=== PATIENT | female | born 1975 | race Caucasian/White ===

== ENCOUNTER 2017-01-21 10:22 | Day surgery (SDC) | payer BC ==
--- NOTE | 2017-01-21 08:52 | HP ---
DATE OF SURGERY: 01/21/2017 HISTORY OF PRESENT ILLNESS: The patient is a 41 year-old with heartburn, palpitations going on for ten to fifteen years worse recently. She did not have any gallstones then. No nausea or vomiting. No change in bowel movements. No jaundice. Recent ultrasound showed cholelithiasis which is new compared to prior study back in 2009 apparently. PAST MEDICAL HISTORY: She had some heart palpitations, heartburn as well as cholelithiasis. PAST SURGICAL HISTORY: Two sections. [place] teeth removed in the past. MEDICATIONS: Omeprazole. ALLERGIES: CODEINE. FAMILY HISTORY: Gallbladder disease and diabetes. SOCIAL HISTORY: Denies smoking, denies alcohol abuse. REVIEW OF SYSTEMS: Twelve systems reviewed. No chest pain or palpitations other systems negative or noncontributory as above and per preadmission questionnaire. PHYSICAL EXAMINATION: GENERAL: No acute distress. HEENT: Sclerae nonicteric. NECK: No JVD. CHEST: Equal excursion, nonlabored breathing. CVS: Regular rate and rhythm. ABDOMEN: Soft. No peritoneal signs. Mild tenderness epigastrium but mainly the patient complains of heartburn. EXTREMITIES: No significant edema. NEURO: Alert, moving extremities symmetrically. No gross motor deficits noted. IMPRESSION: Increasing upper abdominal discomfort, heartburn, cholelithiasis probable chronic cholecystitis. I feel she will benefit from cholecystectomy. Risks and benefits explained in detail including but not limited to bleeding or infection, risk of trocar injury or hernia, small risk of bowel, bladder or blood vessel injury, small risk of bile leak, bile duct injury, retained stone or sludge possibly requiring further procedure either open or ERCP, general risk of anesthesia, deep venous thrombosis, pulmonary embolism, pneumonia, perioperative risk of aches, pains, bloating, constipation and/or loose stools possibly even chronic in nature. She understands and agrees to the planned procedure, will proceed with laparoscopic cholecystectomy with possible open as an outpatient.
[~2017-01-21 10:22] MED LIST: Lactated Ringers 1,000 ML IV ONE; Sensorcaine 0.25% 10 ML ONE
[2017-01-21] MEDS ORDERED: Versed 2 MG/2 ML Injection IV ONE (10:23)
[2017-01-21] MEDS ORDERED: BRIDION 200MG/2ML IV ONE (10:23)
[2017-01-21] MEDS ORDERED: Decadron 4 MG INJ IV ONE (10:23)
[2017-01-21] MEDS ORDERED: Quelicin Fliptop 200 MG/10 ML IV ONE (10:23)
[2017-01-21] MEDS ORDERED: DIPRIVAN 200 MG/20 ML IV ONE (10:23)
[2017-01-21] MEDS ORDERED: TORAdol 30 mg Injection IV ONE (10:23)
[2017-01-21] MEDS ORDERED: Zemuron 100 MG/10 ML IV ONE (10:23)
[2017-01-21] MEDS ORDERED: Zofran 4 MG/2 ML VIAL IV ONE (10:23)
[2017-01-21] MEDS ORDERED: SUBLIMAZE 250 MCG/5 ML IV ONE (10:23)
[2017-01-21] MEDS ORDERED: Lactated Ringers 1,000 ML IV SCH (11:30)
[2017-01-21] MEDS ORDERED: MEFOXIN 2 GM PREMIX** 2 GM/50 ML ML IV SCH (12:00)
[2017-01-21] MEDS ORDERED: SUBLIMAZE 100 MCG/2 ML ONE (15:08)
[2017-01-21 17:09] VITALS: BP 121/74; PULSE 79; O2SAT 99
--- NOTE | 2017-01-22 09:19 | OP ---
SURGERY DATE/TIME: 01/21/2017 1404 PREOPERATIVE DIAGNOSIS: Symptomatic cholelithiasis, chronic cholecystitis. POSTOPERATIVE DIAGNOSIS: Symptomatic cholelithiasis, chronic cholecystitis. PROCEDURE: Laparoscopic cholecystectomy. SURGEON: Dr. Beny Kelly. ANESTHESIA: General. ESTIMATED BLOOD LOSS: Minimal. INDICATIONS: As noted above. Risks and benefits explained in detail but not limited to and consent was obtained. DESCRIPTION OF PROCEDURE AND FINDINGS: The patient was taken to the OR. General anesthesia was induced. Abdomen prepped and draped in the usual sterile fashion. After official time out and no disagreement with planned procedure, a transverse incision made at the supraumbilical area. Fascia grasped and pulled upward. Veress needle inserted and tested with saline. Pneumoperitoneum accomplished insufflating opening pressure of 0-15. An 11 mm bladeless port and camera were inserted without difficulty in the supraumbilical area. There was no evidence of any intra-abdominal injury secondary to trocar insertion. Two - 5 mm right upper quadrant ports and 5 mm epigastric port placed. Gallbladder grasped and retracted over the edge of the liver and laterally away from Calot's triangle. Dissection carried posterior, lateral to anterior fashion. The cystic duct and infundibular junction slowly and carefully well skeletonized until a critical view was obtained both anteriorly and posteriorly. Once this was accomplished cystic duct was then clipped x3 and divided in the usual fashion as well as cystic artery clipped x3 and divided in usual fashion. Gallbladder slowly and carefully dissected free from its dense inflammatory attachments to the liver bed staying directly on the gallbladder wall clipping additional oozing side branch off the cystic artery directly on the gallbladder wall as necessary. Just prior to releasing from final attachments to the anterior edge of the liver the liver bed re-inspected. Clips noted to be in place in cystic duct and cystic artery stumps. There were no signs of any active bleeding or bile leakage. It was felt there was no benefit in drain placement. The gallbladder was released from final attachments to the anterior edge of the liver, pulled up the supraumbilical port site, decompressed of bile. Moderate sized stones were carefully grasped with [place], crushed and then pulled up and carefully retrieved allowing the gallbladder and stones to be pulled up and out without any spillage in the abdomen. At this point fascial defect at 10/11 closed with puncture closure device with #1 Vicryl under direct vision of the camera. At this point liver bed re-inspected. Clips noted to be in place in cystic duct and cystic artery stumps. There were no signs of any active bleeding or bile leakage. It was felt there was no benefit from drain placement. Pneumoperitoneum decompressed. The wound was irrigated out. Skin incision closed with 4-0 Vicryl. Steri-Strips and sterile dressing applied. 0.25% Marcaine local injected along the skin incision fascial defect. The patient tolerated the procedure well. There were no immediate complications. Findings discussed with the family out in the waiting area.
== END 2017-01-21 16:50 | disposition home or self-care (01) ==
LOC: SDC 10:22
PROVIDERS: ATTEND Surgery
PROC: 0FT44ZZ Resection of Gallbladder, Percutaneous Endoscopic Approach (ICD-10-PCS; principal; 2017-01-21)
DX: K80.10 Calculus of gallbladder with chronic cholecystitis without obstruction (principal)
CPT/HCPCS: 00790; J0330; J0694; J1100; J1885; J2250; J2405; J2704; J3010

== ENCOUNTER 2019-05-03 06:10 | Emergency (ER) | payer BC ==
--- NOTE | 2019-05-03 06:14 | ERPHSYRPT ---
- History of Present Illness Source: patient Exam Limitations: no limitations Timing/Duration: today Severity: moderate Character of Deficits: none Deficits: off balance (When ambulating. Symptoms improved when sitting down or laying down) Baseline/Normal Cognition: alert oriented x 3 Current Cognition: alert oriented x 3 Baseline Gait: walks w/o assistance Associated Symptoms: denies symptoms <MARYELLEN CABA - Last Filed: 05/03/19 07:00> <EVELYNE MONGE - Last Filed: 05/03/19 08:17> - History of Present Illness Time Seen by Provider: 05/03/19 06:13 Physician History: This is a 43-year-old female who presents with dizziness and some associated nausea that began approximately midnight prior to this evaluation. Patient was at work and began to have these type of symptoms. Patient has never had this type of issue before. She does not have a sore throat or cough. She does not have any abdominal pain. She has no vomiting and no diarrhea. Patient does state that she has had cold symptoms a few days ago though seem to have improved but she does feel as though she has head and sinus congestion and pressure. Eyes earaches. Not on any new medication. Patient has no urinary symptoms. Does have a history of anxiety and arrhythmias in the past. pt is currently on her menstrual period (MARYELLEN CABA) Allergies/Adverse Reactions: codeine Adverse Reaction (Intermediate, Verified 05/03/19 06:50) Vomiting Home Medications: Eszopiclone 2 mg PO DAILY 05/03/19 [History] - Review of Systems Constitutional: No Symptoms Eyes: No Symptoms Ears, Nose, & Throat: Nose Congestion, Other (Sinus pressure) Respiratory: No Symptoms Cardiac: No Symptoms Abdominal/Gastrointestinal: No Symptoms Genitourinary Symptoms: No Symptoms Musculoskeletal: No Symptoms Skin: No Symptoms Neurological: Dizziness Psychological: No Symptoms Endocrine: No Symptoms Hematologic/Lymphatic: No Symptoms Immunological/Allergic: No Symptoms All Other Systems: Reviewed and Negative <MARYELLEN CABA - Last Filed: 05/03/19 07:00> - Past Medical History Pertinent Past Medical History: Yes Neurological History: No Pertinent History ENT History: No Pertinent History Cardiac History: Arrhythmia Respiratory History: No Pertinent History Endocrine Medical History: No Pertinent History Musculoskeletal History: No Pertinent History GI Medical History: GERD History: No Pertinent History Psycho-Social History: Anxiety Female Reproductive Disorders: No Pertinent History Other Medical History: gest. DM - Past Surgical History Past Surgical History: Yes Neuro Surgical History: No Pertinent History Cardiac: No Pertinent History Respiratory: No Pertinent History Gastrointestinal: No Pertinent History Genitourinary: No Pertinent History Musculoskeletal: No Pertinent History Female Surgical History: Section, Tubal Ligation Other Surgical History: wisdom teeth. - Social History Smoking Status: Former smoker Exposure to second hand smoke: No Drug Use: none <MARYELLEN CABA - Last Filed: 05/03/19 07:00> - [place] Coma Scale Best Eye Response ([place]): (4) open spontaneously Best Verbal Response ([place]): (5) oriented Best Motor Response ([place]): (6) obeys commands [place] Total: 15 - Physical Exam General Appearance: no apparent distress, alert, anxiety Eye Exam: bilateral eye: normal inspection, PERRL, EOMI Ears, Nose, Throat Exam: normal ENT inspection, moist mucous membranes Neck Exam: normal inspection, non-tender, supple, full range of motion Respiratory: normal breath sounds, lungs clear, airway intact, No chest tenderness, No respiratory distress Cardiovascular: regular rate/rhythm, normal heart sounds, normal peripheral pulses Gastrointestinal: No tenderness Pelvic Exam: not done Rectal Exam: not done Back Exam: normal inspection, normal range of motion, No CVA tenderness, No vertebral tenderness Extremity Exam: normal inspection, normal range of motion, pelvis stable Mental Status: alert, oriented x 3, cooperative motion picture director Exam: normal hearing, normal speech, PERRL, tongue midline Coordination/Gait: normal finger to nose, normal gait Skin Exam: normal color, warm, dry SpO2 Interpretation: normal O2 Delivery: Room Air <MARYELLEN CABA ErmiasZuly - Last Filed: 05/03/19 07:00> - Nursing Vital Signs Nursing Vital Signs: Initial Vital Signs Temperature 97.7 F 05/03/19 06:21 Pulse Rate 69 05/03/19 06:21 Respiratory Rate 16 05/03/19 06:21 Blood Pressure 119/80 05/03/19 06:21 O2 Sat by Pulse Oximetry 100 05/03/19 06:21 Pain Scale Pain Intensity 0 - Course Nursing assessment & vital signs reviewed: Yes EKG Interpreted by Me: RATE (67), Sinus Rhythm, NORMAL AXIS, NORMAL INTERVALS, NORMAL QRS, Non-specific ST Changes - CT Exams Head CT Interpretation: Negative <EVELYNE MONGE - Last Filed: 05/03/19 08:17> Ordered Tests: Active Orders 24 hr Category Date Time Status EKG-ER Only STAT Care 05/03/19 06:41 Active IV Insertion STAT Care 05/03/19 06:41 Active NPO (ED) STAT Care 05/03/19 06:42 Active Pulse Oximetry (ED) STAT Care 05/03/19 06:41 Active HEAD WITHOUT CONTRAST [CT] Stat Exams 05/03/19 06:42 Taken CBC W DIFF Stat Lab 05/03/19 06:49 Completed CMP Stat Lab 05/03/19 06:49 Completed CULTURE,URINE Stat Lab 05/03/19 06:50 Received UA W/RFX UR CULTURE Stat Lab 05/03/19 06:50 Completed Lab/Rad Data: Laboratory Result Diagrams 05/03/19 06:49 05/03/19 06:49 Laboratory Results 05/03/19 05/03/19 05/03/19 Range/Units 06:50 06:49 06:49 WBC 2.6 L (4.0-10.5) K/mm3 RBC 4.28 (4.1-5.4) M/mm3 Hgb 13.0 (12.0-16.0) gm/dl Hct 37.1 (35-47) % MCV 86.7 (78-100) fl MCH 30.4 (26-32) pg MCHC 35.0 (32-36) g/dl RDW 12.4 (11.5-14.0) % Plt Count 197 (150-450) K/mm3 MPV 9.1 (7.5-11.0) fl Gran % 54.0 (36.0-66.0) % Eos # (Auto) 0.01 (0-0.5) Absolute Lymphs (auto) 0.84 L (1.0-4.6) Absolute Monos (auto) 0.35 (0.0-1.3) Lymphocytes % 32.2 (24.0-44.0) % Monocytes % 13.4 H (0.0-12.0) % Eosinophils % 0.4 (0.00-5.0) % Basophils % 0.0 (0.0-0.4) % Absolute Granulocytes 1.41 (1.4-6.9) Basophils # 0 (0-0.4) Sodium 135 L (137-145) mmol/L Potassium 3.7 (3.5-5.1) mmol/L Chloride 102 (98-107) mmol/L Carbon Dioxide 25 (22-30) mmol/L Anion Gap 12.1 (5-15) MEQ/L BUN 13 (7-17) mg/dL Creatinine 0.68 (0.52-1.04) mg/dL Estimated GFR > 60.0 ML/MIN Glucose 156 H (74-106) mg/dL Calcium 8.9 (8.4-10.2) mg/dL Total Bilirubin 0.30 (0.2-1.3) mg/dL AST 28 (14-36) U/L ALT 20 (0-35) U/L Alkaline Phosphatase 66 (38-126) U/L Serum Total Protein 7.9 (6.3-8.2) g/dL Albumin 4.4 (3.5-5.0) g/dL Urine Color YELLOW (YELLOW) Urine Appearance CLEAR (CLEAR) Urine pH 6.0 (5-6) Ur Specific [place] 1.029 (1.005-1.025) Urine Protein 30 (Negative) Urine Ketones NEGATIVE (NEGATIVE) Urine Blood LARGE (0-5) Keith/ul Urine Nitrite NEGATIVE (NEGATIVE) Urine Bilirubin NEGATIVE (NEGATIVE) Urine Urobilinogen NEGATIVE (0-1) mg/dL Ur Leukocyte Esterase NEGATIVE (NEGATIVE) Urine WBC (Auto) 0-2 (0-5) /HPF Urine RBC (Auto) 16-25 (0-2) /HPF U Epithel Cells (Auto) NONE (FEW) /HPF Urine Bacteria (Auto) RARE (NEGATIVE) /HPF Urine Mucus (Auto) SLIGHT (NEGATIVE) /HPF Urine Culture Reflexed YES (NO) Urine Glucose NEGATIVE (NEGATIVE) mg/dL <MARYELLEN CABA - Last Filed: 05/03/19 07:00> - Progress Progress: improved <EVELYNE MONGE - Last Filed: 05/03/19 08:17> - Progress Progress Note: 05/03/19 07:00 I have transferred the patient to Dr. Monge. I have reviewed the patient's history and condition as well as work-up pending. He will follow-up with results and make the final disposition. (MARYELLEN CABA) <MARYELLEN CABA - Last Filed: 05/03/19 07:00> - Departure Departure Disposition: Home Critical Care Time: No <EVELYNE MONGE - Last Filed: 05/03/19 08:17> - Departure Clinical Impression: Labyrinthitis Condition: Stable Referrals: DOCTOR,NO FAMILY [Primary Care Provider] - Instructions: Vertigo (a Type of Dizziness) (DC) Prescriptions: Meclizine HCl 25 mg [Antivert 25 mg] 25 mg PO Q8H PRN #10 tablet PRN Reason: Dizziness
[2019-05-03 06:54] LABS: Absolute Neutrophil Ct (ANC) 1.41 (1.4-6.9); Basophil (Absolute #) 0 (0-0.4); Eosinophil % 0.4 % (0.00-5.0); Eosinophil (Absolute #) 0.01 (0-0.5); Hematocrit 37.1 % (35-47); Lymphocyte (Absolute #) 0.84 (1.0-4.6); Lymphocytes % 32.2 % (24.0-44.0); Mean Cell Volume 86.7 fl (78-100); Mean Corpuscular Hemoglobin 30.4 pg (26-32); Mean Platelet Volume 9.1 fl (7.5-11.0); Monocyte (Absolute #) 0.35 (0.0-1.3); Monocytes % 13.4 % (0.0-12.0); Platelet Count 197 K/mm3 (150-450); Red Blood Count 4.28 M/mm3 (4.1-5.4); Red Cell Distribution Width 12.4 % (11.5-14.0); White Blood Count 2.6 K/mm3 (4.0-10.5)
[2019-05-03 07:05] LABS: Appearance CLEAR (CLEAR); Bacteria RARE /HPF (NEGATIVE); Bilirubin NEGATIVE (NEGATIVE); Blood LARGE Ery/ul (0-5); Glucose NEGATIVE (NEGATIVE); Ketones NEGATIVE (NEGATIVE); Leukocyte Esterase NEGATIVE (NEGATIVE); Mucus SLIGHT /HPF (NEGATIVE); Nitrite NEGATIVE (NEGATIVE); Protein,Urine Dip 30 (Negative); Specific Gravity 1.029 (1.005-1.025); Urobilinogen NEGATIVE mg/dL (0-1); WBC 0-2 /HPF (0-5)
[2019-05-03 07:06] LABS: ALBUMIN 4.4 g/dL (3.5-5.0); ALKALINE PHOSPHATASE 66 U/L (38-126); ANION GAP 12.1 MEQ/L (5-15); BLOOD UREA NITROGEN 13 mg/dL (7-17); CHLORIDE 102 mmol/L (98-107); Calcium 8.9 mg/dL (8.4-10.2); Carbon Dioxide 25 mmol/L (22-30); Creatinine 1 0.68 mg/dL (0.52-1.04); Glucose 156 mg/dL (74-106); Potassium 3.7 mmol/L (3.5-5.1); SGOT/AST 28 U/L (14-36); SGPT/ALT 20 U/L (0-35); SODIUM 135 mmol/L (137-145); Total Protein 7.9 g/dL (6.3-8.2)
[2019-05-03 08:14] VITALS: BP 111/74; PULSE 72; O2SAT 97
--- NOTE | 2019-05-03 08:55 | XRAY ---
Indication: Dizziness. Multiple contiguous axial images obtained through the head without contrast. Comparison: February 04, 2007. Continued normal appearing brain parenchyma, ventricles, and bony calvarium. Minimal mucosal thickening of both ethmoid and lesser degree both maxillary sinuses. Mastoid air cells are clear. Impression: Minimal paranasal sinus disease. Remaining CT head without contrast exam is normal. Comment: Preliminary interpretation was made by [facility]. No critical discrepancy.
== END 2019-05-03 08:14 | disposition home or self-care (01) ==
LOC: ED 06:10
DX: H83.09 Labyrinthitis, unspecified ear (principal)
CPT/HCPCS: 36000; 36415; 70450; 80053; 81001; 85025; 87086; 93005; 94760; 99284

== ENCOUNTER 2020-02-22 10:38 | Emergency (ER) | payer BC ==
[2020-02-22] MEDS ORDERED: Sodium Chloride 0.9% 1000 ML 1,000 ML IV SCH (11:00)
[2020-02-22] MEDS ORDERED: Sodium Chloride 0.9% 1000 ML 1,000 ML ONE (11:09)
--- NOTE | 2020-02-22 11:13 | ERPHSYRPT ---
- History of Present Illness Time Seen by Provider: 02/22/20 11:00 Source: patient Exam Limitations: no limitations Patient Subjective Stated Complaint: here for pain to lower abd for 3 days now, no fever, no nausea, pain worse with BM Triage Nursing Assessment: pt alert, resp easy, walked in, skin w/d/p. face mask in place, abd round large, soft, no edema noted Physician History: Patient is a 44-year-old female presents to our ED with a 3-day history of lower abdominal pain. Patient concerned she may have appendicitis. Patient's pain is just inferior to the umbilicus. Pain described as an ache that is localized. No radiation. Bowel movements worsening symptoms. No diarrhea. Lids are normal pain improved with rest. No trauma. No fever. No nausea vomiting or diaphoresis. Symptoms are mild to moderate in intensity. No specific worsening or improving factors. Patient voices no other complaints or concerns at this time. Timing/Duration: day(s) Severity: moderate (Declined pain medication.) Modifying Factors: Improves With: nothing Associated Symptoms: No nausea, No vomiting, No shortness of breath, No diaphoresis, No cough, No chills, No fever, No loss of appetite, No malaise, No seizure, No weakness Allergies/Adverse Reactions: codeine Adverse Reaction (Intermediate, Verified 02/22/20 10:56) Vomiting Home Medications: Eszopiclone [Lunesta] 1 ea DAILY 02/22/20 [History] Hx Tetanus, Diphtheria Vaccination/Date Given: Yes Hx Influenza Vaccination/Date Given: Yes Hx Pneumococcal Vaccination/Date Given: No Immunizations Up to Date: Yes Travel Risk - International Travel Have you traveled outside of the country in past 3 weeks: No - Coronavirus Screening Are you exhibiting any of the following symptoms?: No - Review of Systems Constitutional: No Symptoms, No Fever, No Chills Eyes: No Symptoms Ears, Nose, & Throat: No Symptoms Respiratory: No Symptoms, No Cough, No Dyspnea Cardiac: No Symptoms, No Chest Pain, No Edema, No Syncope Abdominal/Gastrointestinal: No Symptoms, No Abdominal Pain, No Nausea, No Vomiting, No Diarrhea Genitourinary Symptoms: No Symptoms, No Dysuria Musculoskeletal: No Symptoms, No Back Pain, No Neck Pain Skin: No Symptoms, No Rash Neurological: No Symptoms, No Dizziness, No Focal Weakness, No Sensory Changes Psychological: No Symptoms Endocrine: No Symptoms Hematologic/Lymphatic: No Symptoms Immunological/Allergic: No Symptoms All Other Systems: Reviewed and Negative - Past Medical History Pertinent Past Medical History: Yes Neurological History: No Pertinent History ENT History: No Pertinent History Cardiac History: Arrhythmia Respiratory History: No Pertinent History Endocrine Medical History: No Pertinent History Musculoskeletal History: No Pertinent History GI Medical History: GERD History: No Pertinent History Psycho-Social History: Anxiety Female Reproductive Disorders: No Pertinent History Other Medical History: gest. DM - Past Surgical History Past Surgical History: Yes Neuro Surgical History: No Pertinent History Cardiac: No Pertinent History Respiratory: No Pertinent History Gastrointestinal: No Pertinent History Genitourinary: No Pertinent History Musculoskeletal: No Pertinent History Female Surgical History: Section, Tubal Ligation Other Surgical History: wisdom teeth. - Social History Smoking Status: Never smoker Exposure to second hand smoke: No Drug Use: none Patient Lives Alone: No - Female History Hx Last Menstrual Period: 01/27/20 Hx Now: No - Nursing Vital Signs Nursing Vital Signs: Initial Vital Signs Temperature 97.7 F 02/22/20 10:59 Pulse Rate 94 H 02/22/20 10:59 Respiratory Rate 18 02/22/20 10:59 Blood Pressure 113/76 02/22/20 10:59 O2 Sat by Pulse Oximetry 99 02/22/20 10:59 Pain Scale Pain Intensity 5 - Physical Exam General Appearance: no apparent distress, alert Eye Exam: PERRL/EOMI, eyes nml inspection Ears, Nose, Throat Exam: normal ENT inspection, TMs normal, pharynx normal, moist mucous membranes Neck Exam: normal inspection, non-tender, supple, full range of motion Respiratory Exam: normal breath sounds, lungs clear, No respiratory distress Cardiovascular Exam: regular rate/rhythm, normal heart sounds, normal peripheral pulses Gastrointestinal/Abdomen Exam: soft, normal bowel sounds, tenderness, other (Tenderness to palpation just inferior to the umbilicus. No pelvic tenderness or pain. Overlying soft tissue intact. No signs of trauma.), No mass Back Exam: normal inspection, normal range of motion, No CVA tenderness, No vert ebral tenderness Extremity Exam: normal inspection, normal range of motion, pelvis stable Neurologic Exam: alert, oriented x 3, cooperative, normal mood/affect, nml cerebellar function, nml station & gait, sensation nml, No motor deficits Skin Exam: normal color, warm, dry, No rash Lymphatic Exam: No adenopathy SpO2: 99 - Course Nursing assessment & vital signs reviewed: Yes - CT Exams Abdomen/Pelvis CT Interpretation: Tele-radiologist Report (CT scan reveals normal appendix. Tiny physiologic pelvic fluid near right adnexa.. May be related to right adnexal cyst. CT abdomen pelvis negative.) Ordered Tests: Active Orders 24 hr Category Date Time Status IV Insertion STAT Care 02/22/20 10:59 Active ABDOMEN AND PELVIS W CONTRAST [CT] Stat Exams 02/22/20 14:30 Completed CBC W DIFF Stat Lab 02/22/20 11:10 Completed CMP Stat Lab 02/22/20 11:10 Completed HCG,QUALITATIVE URINE Stat Lab 02/22/20 11:10 Completed LIPASE Stat Lab 02/22/20 11:10 Completed TROPONIN Q3H Lab 02/22/20 11:10 Completed TROPONIN Q3H Lab 02/22/20 14:05 Completed TROPONIN Q3H Lab 02/22/20 17:00 Ordered TROPONIN Q3H Lab 02/22/20 20:00 Ordered TROPONIN Q3H Lab 02/22/20 23:00 Ordered UA W/RFX UR CULTURE Stat Lab 02/22/20 11:10 Completed Medication Summary Generic Name Dose Route Start Last Admin Trade Name Freq PRN Reason Stop Dose Admin Sodium Chloride 1,000 mls @ 100 mls/hr 02/22/20 11:00 02/22/20 11:10 Sodium Chloride 0.9% 1000 Ml IV 03/23/20 10:59 100 mls/hr .Q10H FIOR Administration Discontinued Medications Generic Name Dose Route Start Last Admin Trade Name Freq PRN Reason Stop Dose Admin Ketorolac Tromethamine 30 mg 02/22/20 12:32 02/22/20 12:36 Toradol 30 Mg Injection IV 02/22/20 12:33 30 mg STAT ONE Administration Ketorolac Tromethamine Confirm 02/22/20 12:35 Toradol 30 Mg Injection Administered 02/22/20 12:36 Dose 30 mg .ROUTE .[facility] ONE Lab/Rad Data: Laboratory Result Diagrams 02/22/20 11:10 02/22/20 11:10 Laboratory Results 02/22/20 02/22/20 02/22/20 Range/Units 14:05 11:10 11:10 WBC (4.0-10.5) K/mm3 RBC (4.1-5.4) M/mm3 Hgb (12.0-16.0) gm/dl Hct (35-47) % MCV (78-100) fl MCH (26-32) pg MCHC (32-36) g/dl RDW (11.5-14.0) % Plt Count (150-450) K/mm3 MPV (7.5-11.0) fl Gran % (36.0-66.0) % Eos # (Auto) (0-0.5) Absolute Lymphs (auto) (1.0-4.6) Absolute Monos (auto) (0.0-1.3) Lymphocytes % (24.0-44.0) % Monocytes % (0.0-12.0) % Eosinophils % (0.00-5.0) % Basophils % (0.0-0.4) % Absolute Granulocytes (1.4-6.9) Basophils # (0-0.4) Sodium (137-145) mmol/L Potassium (3.5-5.1) mmol/L Chloride (98-107) mmol/L Carbon Dioxide (22-30) mmol/L Anion Gap (5-15) MEQ/L BUN (7-17) mg/dL Creatinine (0.52-1.04) mg/dL Estimated GFR ML/MIN Glucose (74-106) mg/dL Calcium (8.4-10.2) mg/dL Total Bilirubin (0.2-1.3) mg/dL AST (14-36) U/L ALT (0-35) U/L Alkaline Phosphatase (38-126) U/L Troponin I < 0.012 < 0.012 (0.000-0.034) ng/mL Serum Total Protein (6.3-8.2) g/dL Albumin (3.5-5.0) g/dL Lipase (23-300) U/L Urine Color (YELLOW) Urine Appearance (CLEAR) Urine pH (5-6) Ur Specific Lockhart (1.005-1.025) Urine Protein (Negative) Urine Ketones (NEGATIVE) Urine Blood (0-5) Keith/ul Urine Nitrite (NEGATIVE) Urine Bilirubin (NEGATIVE) Urine Urobilinogen (0-1) mg/dL Ur Leukocyte Esterase (NEGATIVE) Urine WBC (Auto) (0-5) /HPF Urine RBC (Auto) (0-2) /HPF U Epithel Cells (Auto) (FEW) /HPF Urine Bacteria (Auto) (NEGATIVE) /HPF Urine Mucus (Auto) (NEGATIVE) /HPF Urine Culture Reflexed (NO) Urine Glucose (NEGATIVE) mg/dL Urine HCG, Qual NEGATIVE (Negative) 02/22/20 02/22/20 02/22/20 Range/Units 11:10 11:10 11:10 WBC 7.5 (4.0-10.5) K/mm3 RBC 4.55 (4.1-5.4) M/mm3 Hgb 13.6 (12.0-16.0) gm/dl Hct 40.6 (35-47) % MCV 89.2 (78-100) fl MCH 29.9 (26-32) pg MCHC 33.5 (32-36) g/dl RDW 12.9 (11.5-14.0) % Plt Count 244 (150-450) K/mm3 MPV 9.9 (7.5-11.0) fl Gran % 58.8 (36.0-66.0) % Eos # (Auto) 0.28 (0-0.5) Absolute Lymphs (auto) 2.36 (1.0-4.6) Absolute Monos (auto) 0.42 (0.0-1.3) Lymphocytes % 31.6 (24.0-44.0) % Monocytes % 5.6 (0.0-12.0) % Eosinophils % 3.7 (0.00-5.0) % Basophils % 0.3 (0.0-0.4) % Absolute Granulocytes 4.40 (1.4-6.9) Basophils # 0.02 (0-0.4) Sodium 136 L (137-145) mmol/L Potassium 3.5 (3.5-5.1) mmol/L Chloride 106 (98-107) mmol/L Carbon Dioxide 23 (22-30) mmol/L Anion Gap 10.3 (5-15) MEQ/L BUN 16 (7-17) mg/dL Creatinine 0.85 (0.52-1.04) mg/dL Estimated GFR > 60.0 ML/MIN Glucose 158 H (74-106) mg/dL Calcium 8.8 (8.4-10.2) mg/dL Total Bilirubin 0.50 (0.2-1.3) mg/dL AST 22 (14-36) U/L ALT 20 (0-35) U/L Alkaline Phosphatase 62 (38-126) U/L Troponin I (0.000-0.034) ng/mL Serum Total Protein 7.5 (6.3-8.2) g/dL Albumin 4.2 (3.5-5.0) g/dL Lipase 96 (23-300) U/L Urine Color KIA (YELLOW) Urine Appearance SLIGHTLY CLOUDY (CLEAR) Urine pH 5.0 (5-6) Ur Specific Lockhart 1.025 (1.005-1.025) Urine Protein NEGATIVE (Negative) Urine Ketones NEGATIVE (NEGATIVE) Urine Blood NEGATIVE (0-5) Keith/ul Urine Nitrite NEGATIVE (NEGATIVE) Urine Bilirubin NEGATIVE (NEGATIVE) Urine Urobilinogen NEGATIVE (0-1) mg/dL Ur Leukocyte Esterase NEGATIVE (NEGATIVE) Urine WBC (Auto) NONE (0-5) /HPF Urine RBC (Auto) NONE (0-2) /HPF U Epithel Cells (Auto) RARE (FEW) /HPF Urine Bacteria (Auto) NONE SEEN (NEGATIVE) /HPF Urine Mucus (Auto) SLIGHT (NEGATIVE) /HPF Urine Culture Reflexed NO (NO) Urine Glucose NEGATIVE (NEGATIVE) mg/dL Urine HCG, Qual (Negative) - Progress Progress: improved Progress Note: 02/22/20 15:58 Patient reassessed. She feels well. I reviewed the CT report with patient. I gave patient a copy of her report as well. Patient declined pain medication. Patient declined possibility of STI. Patient states she is ready for discharge. Patient agrees to follow-up with her primary care doctor within 48 hours for reevaluation. Counseled pt/family regarding: lab results, diagnosis, need for follow-up, rad results - Departure Departure Disposition: Home Clinical Impression: Abdominal pain Condition: Stable Critical Care Time: No Referrals: SARAH BEAVERS MD [Primary Care Provider] - Additional Instructions: Discharge/Care Plan ANAM HENRIQUEZ was seen on 02/22/20 in the Emergency Room. The patient was counseled regarding Diagnosis,Lab results, Imaging studies, need for follow up and when to return to the Emergency Room. Prescriptions given: Discharge Note I have spoken with the patient and/or caregivers. I have explained the patient's condition, diagnosis and treatment plan based on the information available to me at this time. I have answered the patient's and/or caregiver's questions and addressed any concerns. The patient and/or caregivers have as good understanding of the patient's diagnosis, condition and treatment plan as can be expected at this point. The vital signs have been stable. The patient's condition is stable and appropriate for discharge from the emergency department. The patient will pursue further outpatient evaluation with the primary care physician or other designated or consulting physician as outlined in the discharge instructions. The patient and/or caregivers are agreeable to this plan of care and follow-up instructions have been explained in detail. The patient and/or caregivers have received these instruction. The patient/and or caregivers are aware that any significant change in condition or worsening of symptoms should prompt an immediate return to this or the closest emergency department or call 911.
[2020-02-22 11:29] LABS: Appearance SLIGHTLY CLOUDY (CLEAR); Bilirubin NEGATIVE (NEGATIVE); Blood NEGATIVE Ery/ul (0-5); Epithelial Cells RARE /HPF (FEW); Glucose NEGATIVE (NEGATIVE); Ketones NEGATIVE (NEGATIVE); Leukocyte Esterase NEGATIVE (NEGATIVE); Mucus SLIGHT /HPF (NEGATIVE); Nitrite NEGATIVE (NEGATIVE); Protein,Urine Dip NEGATIVE (Negative); Specific Gravity 1.025 (1.005-1.025); Urobilinogen NEGATIVE mg/dL (0-1)
[2020-02-22 11:30] LABS: ALBUMIN 4.2 g/dL (3.5-5.0); ALKALINE PHOSPHATASE 62 U/L (38-126); ANION GAP 10.3 MEQ/L (5-15); BLOOD UREA NITROGEN 16 mg/dL (7-17); CHLORIDE 106 mmol/L (98-107); Calcium 8.8 mg/dL (8.4-10.2); Carbon Dioxide 23 mmol/L (22-30); Creatinine 1 0.85 mg/dL (0.52-1.04); EST GLOMERULAR FILTRATION RATE > 60.0 ML/MIN; Glucose 158 mg/dL (74-106); LIPASE 96 U/L (23-300); Potassium 3.5 mmol/L (3.5-5.1); SGOT/AST 22 U/L (14-36); SGPT/ALT 20 U/L (0-35); SODIUM 136 mmol/L (137-145); Total Protein 7.5 g/dL (6.3-8.2)
[2020-02-22 11:31] LABS: Bacteria NONE SEEN /HPF (NEGATIVE)
[2020-02-22 12:14] LABS: BASOPHIL % 0.3 % (0.0-0.4); Basophil (Absolute #) 0.02 (0-0.4); Eosinophil % 3.7 % (0.00-5.0); Eosinophil (Absolute #) 0.28 (0-0.5); Hematocrit 40.6 % (35-47); Hemoglobin 13.6 gm/dl (12.0-16.0); Lymphocyte (Absolute #) 2.36 (1.0-4.6); Lymphocytes % 31.6 % (24.0-44.0); Mean Cell Volume 89.2 fl (78-100); Mean Corpuscular Hemoglobin 29.9 pg (26-32); Mean Corpuscular Hgb Concent. 33.5 g/dl (32-36); Mean Platelet Volume 9.9 fl (7.5-11.0); Monocyte (Absolute #) 0.42 (0.0-1.3); Monocytes % 5.6 % (0.0-12.0); Neutrophil % 58.8 % (36.0-66.0); Platelet Count 244 K/mm3 (150-450); Red Blood Count 4.55 M/mm3 (4.1-5.4); Red Cell Distribution Width 12.9 % (11.5-14.0); White Blood Count 7.5 K/mm3 (4.0-10.5)
[2020-02-22] MEDS ORDERED: TORAdol 30 mg Injection IV ONE (12:32)
[2020-02-22] MEDS ORDERED: TORAdol 30 mg Injection ONE (12:35)
--- NOTE | 2020-02-22 15:28 | XRAY ---
Indication: Lower abdomen pain. Multiple contiguous axial images obtained through the abdomen and pelvis using 80 cc Isovue 370 contrast only. Comparison: None Lung bases are clear. Heart is not enlarged. Noncontrasted stomach and bowel loops appear nonobstructed. Normal air-filled appendix. Previous cholecystectomy. Tiny fluid right adnexa presumed physiologic from rupture/leaking cyst. No free air. Remaining liver, pancreas, spleen, adrenal glands, kidneys, ureters, bladder, uterus, and aorta appear unremarkable. No pathologic retroperitoneal lymphadenopathy. Osseous structures intact. No ventral or inguinal hernias. Impression: 1. Tiny fluid right adnexa presumed physiologic. 2. Remaining CT abdomen/pelvis with contrast exam is negative.
[2020-02-22 16:11] VITALS: BP 131/86; PULSE 90; O2SAT 98
== END 2020-02-22 16:30 | disposition home or self-care (01) ==
LOC: ED 10:38
DX: R10.9 Unspecified abdominal pain (principal)
CPT/HCPCS: 36000; 36415; 74177; 80053; 81001; 83690; 84484; 84703; 85025; 96360; 96374; 99284; J1885

== ENCOUNTER 2024-04-08 06:29 | Day surgery (SDC) | payer BC ==
[2024-04-08] MEDS ORDERED: Lactated Ringers 1,000 ML IV ONE (06:50)
[2024-04-08] MEDS: Lactated Ringers 1,000 ML IV SCH (06:58)
[2024-04-08 07:16] LABS: HCG URINE TEST NEGATIVE (NEGATIVE)
[2024-04-08] MEDS ORDERED: propofoL IV ONE ×2 (08:09→08:23)
[2024-04-08] MEDS ORDERED: Versed 2 MG/2 ML Injection ONE (08:10)
[2024-04-08 09:10] VITALS: RESP 18; O2SAT 100
[2024-04-08 09:24] VITALS: BP 102/58; PULSE 57; TEMP 97.6
--- NOTE | 2024-04-09 09:02 | OP ---
SURGERY DATE/TIME: 04/08/2024 [id number] PREOPERATIVE DIAGNOSIS: Screening colonoscopy. POSTOPERATIVE DIAGNOSIS: Sigmoid colon polyp x1. PROCEDURE: Colonoscopy. SURGEON: Yazan New MD ANESTHESIA: MAC by Praveen Corrales CRNA. ESTIMATED BLOOD LOSS: Minimal. SPECIMEN: Hot forceps polypectomy from the sigmoid colon. DESCRIPTION OF PROCEDURE AND FINDINGS: After informed written consent was obtained, the patient was taken to the endoscopy suite. She was placed in the left lateral decubitus position, and anesthesia was titrated to the desired level of consciousness. Digital rectal exam showed normal sphincter tone and no internal lesions. The scope was inserted into the rectum, and sequentially, the entire colonic mucosa was traversed. The level of the cecum was reached and verified with direct visualization of the ileocecal valve. Upon withdrawal, careful mucosal inspection revealed no gross abnormalities until the proximal sigmoid colon was reached. A small sessile polyp was grasped with a forceps, cauterized, and removed in its entirety. The area was hemostatic following removal, and the entire lesion appeared to be well removed. It was sent for pathology testing. The remainder of the exam was unremarkable. Prior to withdrawal, retroflexion showed no internal lesions. The scope was removed, and the patient was transferred to the recovery room in good condition. She will follow up in 1 week for pathology report.
== END 2024-04-08 09:33 | disposition home or self-care (01) ==
LOC: SDC 06:29
PROVIDERS: ATTEND Family Medicine
DX: Z12.11 Encounter for screening for malignant neoplasm of colon (principal); K63.5 Polyp of colon
CPT/HCPCS: 81025; J2250; J2704